=== PATIENT | male | born 1990 | race African-American/Black ===

== ENCOUNTER 2023-04-18 01:45 | Emergency (ER) | payer MEDICAID ==
[2023-04-18 02:00] VITALS: BP 111/74
[2023-04-18] MEDS ORDERED: AMOXICILLIN500 MG PO (02:05)
[2023-04-18] MEDS ORDERED: ULTRAM50 MG PO (02:05)
[2023-04-18 02:15] VITALS: BP 108/76
== END 2023-04-18 02:19 | disposition home or self-care (01) ==
LOC: ED 01:45
DX: K04.7 Periapical abscess without sinus (principal); S02.5XXA Fracture of tooth (traumatic), initial encounter for closed fracture; X58.XXXA Exposure to other specified factors, initial encounter; M54.9 Dorsalgia, unspecified

== ENCOUNTER 2023-04-18 22:21 | Emergency (ER) | payer MEDICAID ==
[~2023-04-18] VITALS: Ht 180.3 cm; Wt 79.0 kg
[~2023-04-18 22:21] MED LIST: AMOXICILLIN500 MG PO; ULTRAM50 MG PO
[2023-04-19 02:40] VITALS: BP 117/71
== END 2023-04-19 02:40 | disposition home or self-care (01) ==
LOC: ED 22:21
DX: K04.7 Periapical abscess without sinus (principal); S02.5XXA Fracture of tooth (traumatic), initial encounter for closed fracture; X58.XXXA Exposure to other specified factors, initial encounter; M54.9 Dorsalgia, unspecified